=== PATIENT | female | born 1935 | race Two or more races ===

== ENCOUNTER 2019-05-24 08:51 | Emergency (ER) | payer BC ==
[~2019-05-24] VITALS: Ht 160 cm; Wt 88.6 kg
[~2019-05-24 08:51] MED LIST: ACET-784 PO; ATEN100T PO; BENA10TA PO; BISA-151 PO; CLON0.2T PO; DSS100 PO; FENO134C PO; FURO40SO4 PO; GLIM2TAB3 PO; HYDR-3965 PO; HYDR25TA84 PO; HYOS-28 PO; INSNOV SQ; LEVO50 PO; LEVO50TA4 PO; MOM30 PO; OMEP20 PO; PIOG15TA6 PO; PRAV40TA3 PO
[2019-05-24] MEDS ORDERED: METO25 PO (09:13)
[2019-05-24] MEDS ORDERED: GABA-529 PO (09:13)
[2019-05-24] MEDS ORDERED: ATOR10TA84 PO (09:13)
[2019-05-24] MEDS ORDERED: LIDOCAINE 5% TRANSDERMAL PATCH TD ONE (11:15)
[2019-05-24 11:38] VITALS: BP 139/77
== END 2019-05-24 12:03 | disposition home or self-care (01) ==
LOC: EMS 08:52
DX: M51.36 Other intervertebral disc degeneration, lumbar region (principal); R51 Headache; G89.29 Other chronic pain; E11.9 Type 2 diabetes mellitus without complications; E78.00 Pure hypercholesterolemia, unspecified; I10 Essential (primary) hypertension; E03.9 Hypothyroidism, unspecified; Z90.89 Acquired absence of other organs; Z88.0 Allergy status to penicillin; Z79.4 Long term (current) use of insulin; W19.XXXA Unspecified fall, initial encounter; Y93.89 Activity, other specified; Y92.89 Other specified places as the place of occurrence of the external cause; Y99.8 Other external cause status
CPT/HCPCS: 70450; 72125; 72131

== ENCOUNTER 2019-09-23 08:12 | Emergency (ER) | payer OTHER ==
[~2019-09-23] VITALS: Ht 162.6 cm; Wt 93.8 kg
[~2019-09-23 08:12] MED LIST changes: +ATOR10TA84 PO; +GABA-529 PO; -GLIM2TAB3 PO; +GLIM2TAB30 PO; +METO25 PO
[2019-09-23] MEDS ORDERED: LIDOCAINE 5% TRANSDERMAL PATCH TD ONE (09:00)
[2019-09-23] MEDS ORDERED: KETOROLAC TROMETHAMINE 30 MG/ML VIAL IM ONE (10:15)
[2019-09-23] MEDS ORDERED: FURO40 PO (10:59)
[2019-09-23] MEDS ORDERED: DOCU-275 PO (10:59)
[2019-09-23] MEDS ORDERED: PIOG30TA10 PO (10:59)
[2019-09-23] MEDS ORDERED: GLIM4 PO (10:59)
[2019-09-23] MEDS ORDERED: BENA20TA11 PO (10:59)
[2019-09-23] MEDS ORDERED: HYDR-4061 PO (10:59)
[2019-09-23] MEDS ORDERED: ACETAMINOPHEN 500 MG TABLET PO ONE (11:00)
[2019-09-23 11:01] VITALS: BP 176/74
== END 2019-09-23 12:47 | disposition home or self-care (01) ==
LOC: EMS 08:14
DX: S32.019A Unspecified fracture of first lumbar vertebra, initial encounter for closed fracture (principal); G89.29 Other chronic pain; E11.9 Type 2 diabetes mellitus without complications; E78.00 Pure hypercholesterolemia, unspecified; I10 Essential (primary) hypertension; E03.9 Hypothyroidism, unspecified; Z90.89 Acquired absence of other organs; Z88.0 Allergy status to penicillin; Z79.4 Long term (current) use of insulin; W06.XXXA Fall from bed, initial encounter; Y93.89 Activity, other specified; Y92.89 Other specified places as the place of occurrence of the external cause; Y99.8 Other external cause status
CPT/HCPCS: 72100; 82962; 96372; 99283; J1885